=== PATIENT | female | born 1985 | race Caucasian/White ===

== ENCOUNTER → 2018-03-09 | Outpatient (CLI) | payer BC ==
[~2018-03-09] MED LIST: ACE3 PO; AMO875; CIP500 PO; ENTLA PO; LACT1CAP6 PO; LOR5/325 PO; MULT-1367 PO; NIT100 PO; PHENA100 PO
--- NOTE | 2018-03-09 14:59 | RADIOLOGY IMAGING REPORT ---
[place] [facility] [place] NAME[place] Eleanor Coronel : 1985 MR: [id number] V: [id number] EXAM DATE: ORDERING PHYSICIAN: ELE ROBERSON TECHNOLOGIST: Location: [facility] - [place] Patient: Eleanor Coronel : 1985 Visit/Account:[id number] Date of Sevice: 03/09/2018 THYROID HISTORY: Pain in anterior neck from Isthmus to draw, difficulty breathing COMPARISON: Soft tissue ultrasound of the neck performed today FINDINGS: SIZE: Normal. Right lobe: 4.3 x 2.1 x 1.5 cm Left lobe: 4.6 x 1.8 x 1.1 cm Isthmus: 3.6 mm PARENCHYMA: Homogeneous. NODULES: Right lobe: * None discrete. Left lobe: * None discrete. Isthmus: * None discrete. VASCULARITY: Within normal limits. ADDITIONAL FINDINGS: None. IMPRESSION: Normal-appearing thyroid ultrasound REFERENCE: 2015 [place] [employer] Management Guidelines for Adult Patients with Thyroid Nodules and D ifferentiated Thyroid Cancer: The [place] [employer] Guidelines Task Force on Thyroid Nodul es and Differentiated Thyroid Cancer. SONOGRAPHIC PATTERNS: * Benign: Purely cystic nodules (no solid component); estimated risk of malignancy <1 percent; no bi opsy recommended. * Very Low Suspicion: Spongiform or partially cystic nodules without any of the sonographic features described in low, intermediate, or high suspicion patterns; estimated risk of malignancy <3 percent; consider FNA at > 2 cm (Observation without FNA is also a reasonable option). * Low Suspicion: Isoechoic or hyperechoic solid nodule, or partially cystic nodule with eccentric so lid areas, without microcalcification, irregular margin or ETE (extra-thyroidal extension), or taller than wide shape; estimated risk of malignancy 5-10 percent; recommend FNA at >1.5 cm. * Intermediate Suspicion: Hypoechoic solid nodule with smooth margins without microcalcifications, E TE (extra-thyroidal extension), or taller than wide shape; estimated risk of malignancy 10-20 percent ; recommend FNA at > 1 cm. * High Suspicion: Solid hypoechoic nodule or solid hypoechoic component of a partially cystic nodule with one or more of the following features: irregular margins (infiltrative, microlobulated), microc alcifications, taller than wide shape, rim calcifications with small extrusive soft tissue component, evidence of ETE (extra-thyroidal extension); estimated risk of malignancy >70-90 percent; recommend FNA at > 1 cm. NOTES: * Although a sonographically suspicious subcentimeter thyroid nodule without evidence of extrathyroi reinaldo extension or sonographically suspicious lymph nodes may be observed with close sonographic follow -up rather than pursuing immediate FNA, patient age and preference may modify decision-making. A > 50% interval increase in nodule volume and/or development of new suspicious sonographic features are felt to be a valid reasons for potential re-aspiration of a nodule previously shown to have benig n FNA cytology. Report Dictated By: Yesica Menendez MD at 03/09/2018 2:53 PM Report E-Signed By: Yesica Menendez MD at 03/09/2018 2:54 PM WSN:[email or web address]
--- NOTE | 2018-03-09 15:01 | RADIOLOGY IMAGING REPORT ---
FACILITY: [facility] [place] PATIENT NAME: Eleanor Coronel : 1985 MR: [id number] V: [id number] EXAM DATE: ORDERING PHYSICIAN: ELE ROBERSON TECHNOLOGIST: Location: [facility] Patient: Eleanor Coronel : 1985 Visit/Account:[id number] Date of Sevice: 03/09/2018 Exam type: SOFT TISSUE HEAD NECK History: Anterior neck pain from the thyroid isthmus to the jaw. Comparison: Thyroid ultrasound performed today. Findings: The anterior portion of the patient's neck was imaged from the thyroid isthmus to the angle of the ma ndible. In zone one there is a 6 x 3 x 5 mm fatty replaced lymph node on the right In zone two on the left there are two small fatty replaced lymph nodes one measuring 8.8 x 6 x 6 mm a nd one measuring 9 x 5 x 8 mm IMPRESSION: 1. Small fatty replaced cervical lymph nodes bilaterally as described above. No masses identified o n provided images. If patient's symptoms persist CT or MR of the neck with contrast may be helpful Report Dictated By: Yesica Menendez MD at 03/09/2018 2:54 PM Report E-Signed By: Yesica Menendez MD at 03/09/2018 2:57 PM WSN:[email or web address]
== END ==
LOC: US 00:22
PROVIDERS: ATTEND Physician Assistant
DX: M54.2 Cervicalgia (principal)
CPT/HCPCS: 76536